=== PATIENT | male | born 1955 | race Caucasian/White ===

== ENCOUNTER 2019-03-22 14:58 | Inpatient (IN) | payer MEDICARE, MEDICAID ==
--- NOTE | 2019-03-22 17:21 | ED Physician Chart ---
ED Chief Complaint/HPI - Patient Information Date Seen:: 03/22/19 Time Seen:: 17:21 Chief Complaint:: Weakness History of Present Illness:: 64 yo male with history of schizophrenia was brought from [facility] to ER for evaluation of increasing weakness and confusion. On arrival at ER, pt was awake, alert, and able to ambulate. Pt was oriented x1. Allergies:: Allergies Allergy/AdvReac Type Severity Reaction Status Date / Time No Known Allergies Allergy Verified 03/22/19 15:11 Vitals:: Vital Signs - 8 hr 03/22/19 15:05 Temp 98.3 F HR 107 RR 18 BP 153/99 O2 Sat % 98 ED Review of Systems - Review of Systems General/Constitutional: No fever Skin: No rash Head: No headache Eyes: No pain ENT: No nasal drainage Neck: No neck pain Cardio Vascular: No chest pain Pulmonary: No SOB GI: No nausea, No vomiting Musculoskeletal: No bone or joint pain Psychiatric: Prior psych history Neurological: No focal symptoms ED Past Medical History - Past Medical History Past Medical History: Other (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 ) Social History: Smoker, No Alcohol, No Drug Use Surgical History: Appendectomy Psychiatricy History: Schizophrenia Family Medical History - Family Member Mother History Unknown: Yes ED Physical Exam - Physical Examination General/Constitutional: Awake, Alert Head: Atraumatic Eyes: PERRL Skin: No skin lesions ENMT: Nasal exam nl Neck: No nuchal rigidity Respiratory: No Wheeze/Rhonchi/Rales Cardio Vascular: RRR, No murmur, gallop, rubs, NL S1 S2 GI: No tenderness/rebounding/guarding Extremities: No tenderness or effusion Other Neuro/Psych comments:: A & O x 1, followed commands ED Labs/Radiology/EKG Results - Lab Results Results: Laboratory Last Values WBC 7.2 Th/cmm (4.8-10.8) 03/22/19 17:45 RBC 4.30 Mil/cmm (4.30-5.70) 03/22/19 17:45 Hgb 12.3 gm/dL (12-16) 03/22/19 17:45 Hct 37.7 % (41.0-60) L 03/22/19 17:45 MCV 87.9 fl (80-99) 03/22/19 17:45 MCH 28.7 pg (26.0-30.0) 03/22/19 17:45 MCHC Differential 32.7 pg (28.0-36.0) 03/22/19 17:45 RDW 16.9 % (11.5-20.0) 03/22/19 17:45 Plt Count 285 Th/cmm (150-400) 03/22/19 17:45 MPV 6.9 fl 03/22/19 17:45 Neutrophils % 65.9 % (40.0-80.0) 03/22/19 17:45 Lymphocytes % 21.3 % (20.0-50.0) 03/22/19 17:45 Monocytes % 8.1 % (2.0-10.0) 03/22/19 17:45 Eosinophils % 3.9 % (0.0-5.0) 03/22/19 17:45 Basophils % 0.8 % (0.0-2.0) 03/22/19 17:45 Sodium 135 mEq/L (136-145) L 03/22/19 17:45 Potassium 3.9 mEq/L (3.5-5.1) 03/22/19 17:45 Chloride 101 mEq/L (98-107) 03/22/19 17:45 Carbon Dioxide 27.0 mEq/L (21.0-31.0) 03/22/19 17:45 Anion Gap 10.9 (7.0-16.0) 03/22/19 17:45 BUN 17 mg/dL (7-25) 03/22/19 17:45 Creatinine 0.7 mg/dL (0.7-1.3) 03/22/19 17:45 Est GFR ( Amer) > 60.0 ml/min (>90) 03/22/19 17:45 Est GFR (Non-Af Amer) > 60.0 ml/min 03/22/19 17:45 BUN/Creatinine Ratio 24.3 03/22/19 17:45 Glucose 96 mg/dL (70-105) 03/22/19 17:45 Calcium 9.5 mg/dL (8.6-10.3) 03/22/19 17:45 Total Bilirubin 0.2 mg/dL (0.3-1.0) L 03/22/19 17:45 AST 13 U/L (13-39) 03/22/19 17:45 ALT 10 U/L (7-52) 03/22/19 17:45 Alkaline Phosphatase 70 U/L (34-104) 03/22/19 17:45 Total Protein 6.9 gm/dL (6.0-8.3) 03/22/19 17:45 Albumin 4.0 gm/dL (4.2-5.5) L 03/22/19 17:45 Globulin 2.9 gm/dL 03/22/19 17:45 Albumin/Globulin Ratio 1.4 (1.0-1.8) 03/22/19 17:45 Laboratory Last Values WBC 7.2 Th/cmm (4.8-10.8) 03/22/19 17:45 RBC 4.30 Mil/cmm (4.30-5.70) 03/22/19 17:45 Hgb 12.3 gm/dL (12-16) 03/22/19 17:45 Hct 37.7 % (41.0-60) L 03/22/19 17:45 MCV 87.9 fl (80-99) 03/22/19 17:45 MCH 28.7 pg (26.0-30.0) 03/22/19 17:45 MCHC Differential 32.7 pg (28.0-36.0) 03/22/19 17:45 RDW 16.9 % (11.5-20.0) 03/22/19 17:45 Plt Count 285 Th/cmm (150-400) 03/22/19 17:45 MPV 6.9 fl 03/22/19 17:45 Neutrophils % 65.9 % (40.0-80.0) 03/22/19 17:45 Lymphocytes % 21.3 % (20.0-50.0) 03/22/19 17:45 Monocytes % 8.1 % (2.0-10.0) 03/22/19 17:45 Eosinophils % 3.9 % (0.0-5.0) 03/22/19 17:45 Basophils % 0.8 % (0.0-2.0) 03/22/19 17:45 Sodium 135 mEq/L (136-145) L 03/22/19 17:45 Potassium 3.9 mEq/L (3.5-5.1) 03/22/19 17:45 Chloride 101 mEq/L (98-107) 03/22/19 17:45 Carbon Dioxide 27.0 mEq/L (21.0-31.0) 03/22/19 17:45 Anion Gap 10.9 (7.0-16.0) 03/22/19 17:45 BUN 17 mg/dL (7-25) 03/22/19 17:45 Creatinine 0.7 mg/dL (0.7-1.3) 03/22/19 17:45 Est GFR ( Amer) > 60.0 ml/min (>90) 03/22/19 17:45 Est GFR (Non-Af Amer) > 60.0 ml/min 03/22/19 17:45 BUN/Creatinine Ratio 24.3 03/22/19 17:45 Glucose 96 mg/dL (70-105) 03/22/19 17:45 Calcium 9.5 mg/dL (8.6-10.3) 03/22/19 17:45 Total Bilirubin 0.2 mg/dL (0.3-1.0) L 03/22/19 17:45 AST 13 U/L (13-39) 03/22/19 17:45 ALT 10 U/L (7-52) 03/22/19 17:45 Alkaline Phosphatase 70 U/L (34-104) 03/22/19 17:45 Troponin I < 0.01 ng/mL (0.01-0.05) L 03/22/19 17:45 B-Natriuretic Peptide 7.0 pg/mL (5.0-100.0) 03/22/19 17:45 Total Protein 6.9 gm/dL (6.0-8.3) 03/22/19 17:45 Albumin 4.0 gm/dL (4.2-5.5) L 03/22/19 17:45 Globulin 2.9 gm/dL 03/22/19 17:45 Albumin/Globulin Ratio 1.4 (1.0-1.8) 03/22/19 17:45 TSH 0.68 uIU/ml (0.34-5.60) 03/22/19 17:45 Urine Source MIDSTREAM 03/22/19 18:50 Urine Color YELLOW 03/22/19 18:50 Urine Clarity CLEAR (CLEAR) 03/22/19 18:50 Urine pH 6.0 (4.6 - 8.0) 03/22/19 18:50 Ur Specific [place] 1.010 (1.005-1.030) 03/22/19 18:50 Urine Protein NEGATIVE mg/dL (NEGATIVE) 03/22/19 18:50 Urine Glucose (UA) NEGATIVE mg/dL (NEGATIVE) 03/22/19 18:50 Urine Ketones NEGATIVE mg/dL (NEGATIVE) 03/22/19 18:50 Urine Blood NEGATIVE (NEGATIVE) 03/22/19 18:50 Urine Nitrate NEGATIVE (NEGATIVE) 03/22/19 18:50 Urine Bilirubin NEGATIVE (NEGATIVE) 03/22/19 18:50 Urine Urobilinogen 0.2 E.U./dL (0.2 - 1.0) 03/22/19 18:50 Ur Leukocyte Esterase NEGATIVE (NEGATIVE) 03/22/19 18:50 Urine RBC 0-2 /hpf (0-5) H 03/22/19 18:50 Urine WBC 2-5 /hpf (0-5) 03/22/19 18:50 Ur Epithelial Cells FEW /lpf (FEW) 03/22/19 18:50 Urine Bacteria FEW /hpf (NONE SEEN) 03/22/19 18:50 Urine Mucus FEW /lpf (FEW) 03/22/19 18:50 - Radiology Results Results: CXR: no focal consolidation - EKG Interpretations EKG Time:: 17:35 Rate & Rhythm: 60 bpm, sinus rhythm [place]: Normal axis ED Assessment - Assessment General Assessment: General weakness Encephalopathy Assessment/Comments:: CBC, CMP, Trop, BNP, CPK, UA CXR, EKG Discussed with Dr. Perez for possible further evaluation and management of the encephalopathy. ED Septic Shock - . Is Septic Shock (SBP<90, OR Lactate>4 mmol\L) present?: No - <6hrs of presentation: Vital Signs: Vital Signs - 8 hr 03/22/19 15:05 Temp 98.3 F HR 107 RR 18 BP 153/99 O2 Sat % 98 ED Reassessment (Disposition) - Reassessment Reassessment Condition:: Unchanged - Patient Disposition Discharge/Transfer:: Acute Care w/in this hosp Admitting Medical Physician:: Letty Perez
[2019-03-22 18:04] LABS: % BASOPHILS 0.8 % (0.0-2.0); % EOSINOPHILS 3.9 % (0.0-5.0); % LYMPHOCYTES 21.3 % (20.0-50.0); % MONOCYTES 8.1 % (2.0-10.0); % NEUTROPHILS 65.9 % (40.0-80.0); BASOPHILE ABSOLUTE 0.1 Th/cumm (0-0.2); EOSINOPHILE ABSOLUTE 0.3 Th/cmm (0.1-0.4); HEMATOCRIT 37.7 % (41.0-60); HEMOGLOBIN 12.3 gm/dL (12-16); LYMPHOCYTE ABSOLUTE 1.5 Th/cmm (1.5-3.0); MEAN CELL VOLUME 87.9 fl (80-99); MEAN CORPUSCULAR HEMOGLOBIN 28.7 pg (26.0-30.0); MEAN CORPUSCULAR HGB CONC 32.7 pg (28.0-36.0); MEAN PLATELET VOLUME 6.9 fl; MONOCYTE ABSOLUTE 0.6 Th/cmm (0.3-1.0); NEUTROPHILE ABSOLUTE 4.7 Th/cmm (1.8-8.0); PLATELET COUNT 285 Th/cmm (150-400); RED CELL DISTRIBUTION WIDTH 16.9 % (11.5-20.0); WHITE BLOOD COUNT 7.2 Th/cmm (4.8-10.8)
[2019-03-22 18:20] LABS: ALB/GLOB RATIO 1.4 (1.0-1.8); ALKALINE PHOSPHATASE 70 U/L (34-104); ANION GAP 10.9 (7.0-16.0); BILIRUBIN,TOTAL 0.2 mg/dL (0.3-1.0); BUN - UREA NITROGEN 17 mg/dL (7-25); CALCIUM SERUM 9.5 mg/dL (8.6-10.3); CHLORIDE 101 mEq/L (98-107); CREATININE - SERUM 0.7 mg/dL (0.7-1.3); GFR AFRICAN-AMERICAN > 60.0 ml/min (>90); GFR NON AFRICAN-AMERICAN > 60.0 ml/min; GLUCOSE 96 mg/dL (70-105); POTASSIUM SERUM 3.9 mEq/L (3.5-5.1); SGOT 13 U/L (13-39); SGPT/ALT 10 U/L (7-52); SODIUM SERUM 135 mEq/L (136-145); TOTAL PROTEIN,SERUM 6.9 gm/dL (6.0-8.3)
[2019-03-22 19:48] LABS: URINE SOURCE MIDSTREAM
[2019-03-22 20:08] LABS: URINE BILIRUBIN NEGATIVE (NEGATIVE); URINE BLOOD NEGATIVE (NEGATIVE); URINE CLARITY CLEAR (CLEAR); URINE COLOR YELLOW; URINE GLUCOSE (UA) NEGATIVE (NEGATIVE); URINE KETONE NEGATIVE (NEGATIVE); URINE LEUKOCYTE ESTERASE NEGATIVE (NEGATIVE); URINE MICROSCOPIC INDICATED? YES; URINE NITRATE NEGATIVE (NEGATIVE); URINE PROTEIN NEGATIVE (NEGATIVE); URINE UROBILINOGEN 0.2 E.U./dL (0.2 - 1.0)
[2019-03-22 20:49] LABS: URINE BACTERIA FEW /hpf (NONE SEEN); URINE EPITHELIAL CELLS FEW /lpf (FEW); URINE RBC 0-2 /hpf (0-5)
[2019-03-22 23:22] VITALS: BP 115/67
[2019-03-22] MEDS: D5-0.45NS 1,000 ML IV SCH (23:42)
[2019-03-23] MEDS ORDERED: Pneumococcal Vaccine 0.5 mL Vial IM ONE (00:38)
[2019-03-23 06:39] LABS: % BASOPHILS 0.6 % (0.0-2.0); % MONOCYTES 9.2 % (2.0-10.0); % NEUTROPHILS 61.2 % (40.0-80.0); EOSINOPHILE ABSOLUTE 0.4 Th/cmm (0.1-0.4); HEMATOCRIT 36.8 % (41.0-60); HEMOGLOBIN 12.2 gm/dL (12-16); LYMPHOCYTE ABSOLUTE 1.4 Th/cmm (1.5-3.0); MEAN CELL VOLUME 87.2 fl (80-99); MEAN CORPUSCULAR HEMOGLOBIN 28.9 pg (26.0-30.0); MEAN CORPUSCULAR HGB CONC 33.1 pg (28.0-36.0); MEAN PLATELET VOLUME 7.2 fl; MONOCYTE ABSOLUTE 0.6 Th/cmm (0.3-1.0); NEUTROPHILE ABSOLUTE 3.6 Th/cmm (1.8-8.0); PLATELET COUNT 267 Th/cmm (150-400); RED BLOOD COUNT 4.22 Mil/cmm (4.30-5.70); RED CELL DISTRIBUTION WIDTH 17.1 % (11.5-20.0)
[2019-03-23 06:47] LABS: INR 0.94 (0.5-1.4); PROTHROMBIN TIME (TEST) 9.8 SECONDS (9.5-11.5)
[2019-03-23 06:54] LABS: ALB/GLOB RATIO 1.4 (1.0-1.8); ALBUMIN 3.8 gm/dL (4.2-5.5); ALKALINE PHOSPHATASE 67 U/L (34-104); ANION GAP 10.8 (7.0-16.0); BILIRUBIN,TOTAL 0.3 mg/dL (0.3-1.0); BUN - UREA NITROGEN 15 mg/dL (7-25); CALCIUM SERUM 9.4 mg/dL (8.6-10.3); CHLORIDE 101 mEq/L (98-107); CHOLESTEROL 165 mg/dL (<200); CREATININE - SERUM 0.7 mg/dL (0.7-1.3); GFR AFRICAN-AMERICAN > 60.0 ml/min (>90); GFR NON AFRICAN-AMERICAN > 60.0 ml/min; GLUCOSE 109 mg/dL (70-105); HDL -HIGH DENSITY LIPOPROTEIN 37 mg/dL (23-92); MAGNESIUM 2.3 mg/dL (1.9-2.7); POTASSIUM SERUM 3.8 mEq/L (3.5-5.1); SGOT 14 U/L (13-39); SGPT/ALT 11 U/L (7-52); SODIUM SERUM 136 mEq/L (136-145); TOTAL PROTEIN,SERUM 6.6 gm/dL (6.0-8.3); TRIGLYCERIDES 82 mg/dL (<150)
--- NOTE | 2019-03-23 10:41 | Diagnostic Imaging Report ---
Head CT without intravenous contrast Indication: Weakness Comparison: None Technique: Axial images were obtained from the vertex to the skull base without IV contrast. Coronal reconstructions were made. Total DLP: 640, CTDI35 FINDINGS: Images of the brain obtained without contrast demonstrate no evidence of an acute hemorrhage. Atrophy is noted. The ventricles and basal cisterns are patent. No mass effect or midline shift. No evidence of a skull fracture or focal soft tissue swelling. There is age indeterminate nasal fractures. There is mild mucosal thickening of the paranasal sinuses. IMPRESSION: No evidence of an acute intracranial hemorrhage. Atrophy. Age indeterminate nasal bone fractures possibly chronic. Please correlate with clinical findings.
--- NOTE | 2019-03-23 11:20 | Diagnostic Imaging Report ---
Portable chest x-ray Time: 1732 History: SOB Allowing for portable technique the heart size is normal. No focal pulmonary parenchymal processes. No hilar or mediastinal abnormalities. There is evidence of COPD changes. Impression: No acute abnormalities. COPD changes.
--- NOTE | 2019-03-23 12:41 | History & Physical ---
ADMIT DATE: 03/23/2019 DICTATED FOR: Dr. Perez. CHIEF COMPLAINT: Increase in weakness. HISTORY OF PRESENT ILLNESS: A 64-year-old male, who is a skilled nursing resident, admitted to the telemetry unit due to a 1-day history of increase of generalized weakness associated with confusion. PAST MEDICAL HISTORY: Right second distal phalanx osteomyelitis, schizophrenia. SOCIAL HISTORY: The patient is a skilled nursing resident. The patient is a current smoker. SURGICAL HISTORY: Appendectomy. FAMILY HISTORY: Noncontributory. MEDICATIONS: See medication list. REVIEW OF SYSTEMS: GENERAL: Denies any fever or chills. CARDIOVASCULAR: Denies chest pain. RESPIRATORY: Shortness of breath. GASTROINTESTINAL: Denies nausea, vomiting, abdominal pain. NEUROLOGIC: The patient complains of weakness. All other systems are reviewed and negative. PHYSICAL EXAMINATION: GENERAL: The patient is well developed, well nourished, in no apparent distress. VITAL SIGNS: Temperature 97.3, heart rate 63, blood pressure 132/85, respirations 19, O2 99%. HEENT: Head is normocephalic, atraumatic. NECK: Supple. No mass. LUNGS: Clear bilaterally. HEART: ____. ABDOMEN: Soft, nontender. LABORATORY DATA: WBC 6.0, H and H 12.2 and 36.8, platelet of 267. Sodium 136, potassium 3.8, chloride 101, BUN 15, creatinine 0.7. ASSESSMENT: Weakness, encephalopathy, schizophrenia. PLAN: The patient to be admitted to the telemetry unit. We will give IV fluids for hydration. We will get GI consultation as well. We will continue to monitor the patient. JOB# [id number]
--- NOTE | 2019-03-23 14:55 | Consultation ---
DATE OF CONSULTATION: 03/23/2019 IDENTIFYING INFORMATION: The patient is a 64-year-old male. REASON FOR CONSULTATION: The patient with a history of schizophrenia, came from [facility] to the Emergency Room for evaluation, increasing weakness, confusion. HISTORY OF PRESENT ILLNESS: The patient was awake, alert, unable to ambulate, oriented to person only. When I talked to him, he was a very poor historian. He believes he was 67. He reports that he has a girlfriend that is age 18. He did not know he came from [facility] facility. He believes he lives in an apartment with his girlfriend that is 18 years of age and they have been together for 1 year. He reports sleeps well, eats well. Denies any current intent to harm himself or anybody. Denies any current audible or visual hallucination; however, he said he may had in the past. PAST PSYCHIATRIC HISTORY: The patient is unable to give me if he has any prior psychiatric treatment, but he said he may have seen a psychiatrist before. He denies any prior suicide attempt. MEDICAL HISTORY: Weakness. The patient also with a history of high blood pressure. He was started on antibiotic. ALLERGIES: He has no known drug allergy. MEDICATIONS: He is not on any psychotropic medication. FAMILY AND SOCIAL HISTORY: The patient reports he is single, never , but he has a boy. Unable to tell me his age. The patient reports no family psychotic disorder. He reports history of using THC and alcohol, but not recently. He was a poor historian, unreliable. The patient denies legal problem. He believes he lives in an apartment with his girlfriend that is 18 years of age. MENTAL STATUS EXAMINATION: The patient was appropriately dressed, not well groomed. He was alert. He believes he was 67, on reality 64. He is unable to tell me his age, where he is. He believes he is here because he has pain in his hands. He denies any adventism or paranoia. Denies any intent to harm self or anybody. He denies any paranoia. He seems to have poor insight, unable to realize what his problems are, his cannot remember his age and recent memories we does not know the exact details at his admission. His insight about his illness is poor, does not know what his problem is. His judgment is poor because of his poor memory and unable to make safe plan for self-care. He denies any suicidal ideation. IMPRESSION: History of schizophrenia. MEDICAL DIAGNOSES: As per medical. I recommend at this point, the patient is not having any psychotic symptoms; however does not have any psychotic symptoms, he may need to be back on his medication. He is more confused, may be demented recommend to follow up with the psychiatrist upon discharge. Thank you very much for allowing me to participate in the care of this most interesting gentleman. JOB# [id number] MTDD
[2019-03-23] MEDS ORDERED: Non-Formulary Item 1 EA (Amino Acids/Protein Hydrolys [Pro-Stat Awc Liquid Packet] 30 ML) PO SCH (17:00)
[2019-03-23] MEDS: Ferrous Sulfate 325 MG TAB PO SCH (18:09)
[2019-03-24] MEDS: D5-0.45NS 1,000 ML IV SCH (02:39)
[2019-03-24 06:14] LABS: % BASOPHILS 0.5 % (0.0-2.0); % EOSINOPHILS 4.6 % (0.0-5.0); % LYMPHOCYTES 23.9 % (20.0-50.0); % MONOCYTES 7.9 % (2.0-10.0); % NEUTROPHILS 63.1 % (40.0-80.0); EOSINOPHILE ABSOLUTE 0.3 Th/cmm (0.1-0.4); HEMATOCRIT 40.1 % (41.0-60); HEMOGLOBIN 13.1 gm/dL (12-16); LYMPHOCYTE ABSOLUTE 1.6 Th/cmm (1.5-3.0); MEAN CORPUSCULAR HEMOGLOBIN 28.8 pg (26.0-30.0); MEAN CORPUSCULAR HGB CONC 32.7 pg (28.0-36.0); MEAN PLATELET VOLUME 6.9 fl; MONOCYTE ABSOLUTE 0.5 Th/cmm (0.3-1.0); NEUTROPHILE ABSOLUTE 4.5 Th/cmm (1.8-8.0); PLATELET COUNT 288 Th/cmm (150-400); RED BLOOD COUNT 4.56 Mil/cmm (4.30-5.70); RED CELL DISTRIBUTION WIDTH 16.8 % (11.5-20.0); WHITE BLOOD COUNT 6.9 Th/cmm (4.8-10.8)
[2019-03-24 06:38] LABS: ANION GAP 10.3 (7.0-16.0); BUN - UREA NITROGEN 15 mg/dL (7-25); CALCIUM SERUM 9.6 mg/dL (8.6-10.3); CARBON DIOXIDE 28.8 mEq/L (21.0-31.0); CHLORIDE 101 mEq/L (98-107); CREATININE - SERUM 0.7 mg/dL (0.7-1.3); GFR AFRICAN-AMERICAN > 60.0 ml/min (>90); GFR NON AFRICAN-AMERICAN > 60.0 ml/min; GLUCOSE 99 mg/dL (70-105); POTASSIUM SERUM 4.1 mEq/L (3.5-5.1); SODIUM SERUM 136 mEq/L (136-145)
[2019-03-24] MEDS: Ferrous Sulfate 325 MG TAB PO SCH ×2 (08:25→17:25)
--- NOTE | 2019-03-24 12:52 | Internal Medicine Prog Note ---
Internal Medicine Subjective - Subjective Patient seen and examined:: chart reviewed (pt. with generalized weakness ) Patient is:: awake, confused Per staff patient has:: tolerating meds Internal Medicine Objective - Results Result Diagrams: 03/24/19 06:00 03/24/19 06:00 Recent Labs: Laboratory Last Values WBC 6.9 Th/cmm (4.8-10.8) 03/24/19 06:00 RBC 4.56 Mil/cmm (4.30-5.70) 03/24/19 06:00 Hgb 13.1 gm/dL (12-16) 03/24/19 06:00 Hct 40.1 % (41.0-60) L 03/24/19 06:00 MCV 88.0 fl (80-99) 03/24/19 06:00 MCH 28.8 pg (26.0-30.0) 03/24/19 06:00 MCHC Differential 32.7 pg (28.0-36.0) 03/24/19 06:00 RDW 16.8 % (11.5-20.0) 03/24/19 06:00 Plt Count 288 Th/cmm (150-400) 03/24/19 06:00 MPV 6.9 fl 03/24/19 06:00 Neutrophils % 63.1 % (40.0-80.0) 03/24/19 06:00 Lymphocytes % 23.9 % (20.0-50.0) 03/24/19 06:00 Monocytes % 7.9 % (2.0-10.0) 03/24/19 06:00 Eosinophils % 4.6 % (0.0-5.0) 03/24/19 06:00 Basophils % 0.5 % (0.0-2.0) 03/24/19 06:00 PT 9.8 SECONDS (9.5-11.5) 03/23/19 05:55 INR 0.94 (0.5-1.4) 03/23/19 05:55 PTT (Actin FS) 23.6 SECONDS (26.0-38.0) L 03/23/19 05:55 Sodium 136 mEq/L (136-145) 03/24/19 06:00 Potassium 4.1 mEq/L (3.5-5.1) 03/24/19 06:00 Chloride 101 mEq/L (98-107) 03/24/19 06:00 Carbon Dioxide 28.8 mEq/L (21.0-31.0) 03/24/19 06:00 Anion Gap 10.3 (7.0-16.0) 03/24/19 06:00 BUN 15 mg/dL (7-25) 03/24/19 06:00 Creatinine 0.7 mg/dL (0.7-1.3) 03/24/19 06:00 Est GFR ( Amer) > 60.0 ml/min (>90) 03/24/19 06:00 Est GFR (Non-Af Amer) > 60.0 ml/min 03/24/19 06:00 BUN/Creatinine Ratio 21.4 03/24/19 06:00 Glucose 99 mg/dL (70-105) 03/24/19 06:00 Calcium 9.6 mg/dL (8.6-10.3) 03/24/19 06:00 Magnesium 2.3 mg/dL (1.9-2.7) 03/23/19 05:55 Total Bilirubin 0.3 mg/dL (0.3-1.0) 03/23/19 05:55 AST 14 U/L (13-39) 03/23/19 05:55 ALT 11 U/L (7-52) 03/23/19 05:55 Alkaline Phosphatase 67 U/L (34-104) 03/23/19 05:55 Ammonia 38 umol/L (16-53) 03/23/19 05:55 Troponin I < 0.01 ng/mL (0.01-0.05) L 03/22/19 17:45 B-Natriuretic Peptide 7.0 pg/mL (5.0-100.0) 03/22/19 17:45 Total Protein 6.6 gm/dL (6.0-8.3) 03/23/19 05:55 Albumin 3.8 gm/dL (4.2-5.5) L 03/23/19 05:55 Globulin 2.8 gm/dL 03/23/19 05:55 Albumin/Globulin Ratio 1.4 (1.0-1.8) 03/23/19 05:55 Triglycerides 82 mg/dL (<150) 03/23/19 05:55 Cholesterol 165 mg/dL (<200) 03/23/19 05:55 LDL Cholesterol Direct 119 mg/dL (75-193) 03/23/19 05:55 HDL Cholesterol 37 mg/dL (23-92) 03/23/19 05:55 TSH 0.82 uIU/ml (0.34-5.60) 03/23/19 05:55 Urine Source MIDSTREAM 03/22/19 18:50 Urine Color YELLOW 03/22/19 18:50 Urine Clarity CLEAR (CLEAR) 03/22/19 18:50 Urine pH 6.0 (4.6 - 8.0) 03/22/19 18:50 Ur Specific [place] 1.010 (1.005-1.030) 03/22/19 18:50 Urine Protein NEGATIVE mg/dL (NEGATIVE) 03/22/19 18:50 Urine Glucose (UA) NEGATIVE mg/dL (NEGATIVE) 03/22/19 18:50 Urine Ketones NEGATIVE mg/dL (NEGATIVE) 03/22/19 18:50 Urine Blood NEGATIVE (NEGATIVE) 03/22/19 18:50 Urine Nitrate NEGATIVE (NEGATIVE) 03/22/19 18:50 Urine Bilirubin NEGATIVE (NEGATIVE) 03/22/19 18:50 Urine Urobilinogen 0.2 E.U./dL (0.2 - 1.0) 03/22/19 18:50 Ur Leukocyte Esterase NEGATIVE (NEGATIVE) 03/22/19 18:50 Urine RBC 0-2 /hpf (0-5) H 03/22/19 18:50 Urine WBC 2-5 /hpf (0-5) 03/22/19 18:50 Ur Epithelial Cells FEW /lpf (FEW) 03/22/19 18:50 Urine Bacteria FEW /hpf (NONE SEEN) 03/22/19 18:50 Urine Mucus FEW /lpf (FEW) 03/22/19 18:50 - Physical Exam Vitals and I&O: Vital Signs Temp 97.5 F 03/24/19 08:00 Pulse 57 03/24/19 08:00 Resp 19 03/24/19 08:00 BP 122/60 03/24/19 08:00 Pulse Ox 98 03/24/19 08:00 Intake & Output 03/23/19 03/24/19 03/24/19 18:59 06:59 18:59 Intake Total 1000 1480 Output Total 1200 Balance 1000 280 Weight (lbs) 65.771 kg 63.049 kg Intake: Intake, IV Amount 1000 D5-0.45NS 1,000 ml @ 50 1000 mls/hr IV .Q20H [facility] Rx#: [id number] Oral 1000 480 Output: Urine 1200 Stool 0 Other: # Voids 4 # Bowel Movements 0 0 Weight Source Bedscale Bedscale Active Medications: Current Medications Acetaminophen (Tylenol) 650 mg PO Q4HR [facility] Stop: 05/22/19 15:59 Last Admin: 03/24/19 12:01 Dose: Not Given Docusate Sodium (Colace) 100 mg PO BID [facility] Stop: 05/22/19 16:59 Last Admin: 03/24/19 08:26 Dose: 100 mg Ferrous Sulfate (Iron) 325 mg PO BID [facility] Stop: 05/22/19 16:59 Last Admin: 03/24/19 08:25 Dose: 325 mg Hydralazine HCl (Apresoline) 25 mg PO Q6HR PRN PRN Reason: BP MAINTENANCE (PER PROTOCOL) Stop: 05/22/19 12:16 Dextrose/Sodium Chloride (D5-0.45ns) 1,000 mls @ 50 mls/hr IV .Q20H [facility] Stop: 05/21/19 19:29 Last Admin: 03/24/19 02:39 Dose: 50 mls/hr General: weak HEENT: PERRLA, EOMI Neck: Supple Lungs: CTAB Cardiovascular: RRR, Normal S1, Normal S2 Abdomen: soft, non-tender, non-distended, positive bowel sound Neurological: muscle weakness Internal Medicine Assmt/Plan - Assessment Assessment: weakness encephalopathy schizophrenia - Plan Plan: iv fluids gi eval. will monitor pt. cpm
[2019-03-25] MEDS: D5-0.45NS 1,000 ML IV SCH ×2 (01:40→08:58)
--- NOTE | 2019-03-25 02:38 | Progress Notes ---
DATE: 03/24/2019 Case was discussed with staff of the patient, reviewed records. The patient continues to be confused, unable to give me his age. He has no clue why he is here. Continues to be unpredictable, impulsive; however, he is not acting out. According to the staff, he is sleeping better, eating better. He is currently not on any psychotropic medication; however, I will follow up with the patient and see if he is needing it because of history of schizophrenia. Also, he may be demented and the patient needs follow up with the psychiatrist upon discharge to continue to follow him. Thank you very much for allowing me to participate in the care of this most interesting gentleman. JOB# [id number]
[2019-03-25] MEDS: Ferrous Sulfate 325 MG TAB PO SCH ×2 (08:57→17:20)
[2019-03-26] MEDS: Ferrous Sulfate 325 MG TAB PO SCH ×2 (08:38→16:16)
--- NOTE | 2019-03-26 10:38 | Internal Medicine Prog Note ---
Internal Medicine Subjective - Subjective Patient seen and examined:: chart reviewed (pt awake alert in no acute distress) Patient is:: awake, confused Per staff patient has:: tolerating meds Internal Medicine Objective - Results Result Diagrams: 03/24/19 06:00 03/24/19 06:00 Recent Labs: Laboratory Last Values WBC 6.9 Th/cmm (4.8-10.8) 03/24/19 06:00 RBC 4.56 Mil/cmm (4.30-5.70) 03/24/19 06:00 Hgb 13.1 gm/dL (12-16) 03/24/19 06:00 Hct 40.1 % (41.0-60) L 03/24/19 06:00 MCV 88.0 fl (80-99) 03/24/19 06:00 MCH 28.8 pg (26.0-30.0) 03/24/19 06:00 MCHC Differential 32.7 pg (28.0-36.0) 03/24/19 06:00 RDW 16.8 % (11.5-20.0) 03/24/19 06:00 Plt Count 288 Th/cmm (150-400) 03/24/19 06:00 MPV 6.9 fl 03/24/19 06:00 Neutrophils % 63.1 % (40.0-80.0) 03/24/19 06:00 Lymphocytes % 23.9 % (20.0-50.0) 03/24/19 06:00 Monocytes % 7.9 % (2.0-10.0) 03/24/19 06:00 Eosinophils % 4.6 % (0.0-5.0) 03/24/19 06:00 Basophils % 0.5 % (0.0-2.0) 03/24/19 06:00 PT 9.8 SECONDS (9.5-11.5) 03/23/19 05:55 INR 0.94 (0.5-1.4) 03/23/19 05:55 PTT (Actin FS) 23.6 SECONDS (26.0-38.0) L 03/23/19 05:55 Sodium 136 mEq/L (136-145) 03/24/19 06:00 Potassium 4.1 mEq/L (3.5-5.1) 03/24/19 06:00 Chloride 101 mEq/L (98-107) 03/24/19 06:00 Carbon Dioxide 28.8 mEq/L (21.0-31.0) 03/24/19 06:00 Anion Gap 10.3 (7.0-16.0) 03/24/19 06:00 BUN 15 mg/dL (7-25) 03/24/19 06:00 Creatinine 0.7 mg/dL (0.7-1.3) 03/24/19 06:00 Est GFR ( Amer) > 60.0 ml/min (>90) 03/24/19 06:00 Est GFR (Non-Af Amer) > 60.0 ml/min 03/24/19 06:00 BUN/Creatinine Ratio 21.4 03/24/19 06:00 Glucose 99 mg/dL (70-105) 03/24/19 06:00 Calcium 9.6 mg/dL (8.6-10.3) 03/24/19 06:00 Magnesium 2.3 mg/dL (1.9-2.7) 03/23/19 05:55 Total Bilirubin 0.3 mg/dL (0.3-1.0) 03/23/19 05:55 AST 14 U/L (13-39) 03/23/19 05:55 ALT 11 U/L (7-52) 03/23/19 05:55 Alkaline Phosphatase 67 U/L (34-104) 03/23/19 05:55 Ammonia 38 umol/L (16-53) 03/23/19 05:55 Troponin I < 0.01 ng/mL (0.01-0.05) L 03/22/19 17:45 B-Natriuretic Peptide 7.0 pg/mL (5.0-100.0) 03/22/19 17:45 Total Protein 6.6 gm/dL (6.0-8.3) 03/23/19 05:55 Albumin 3.8 gm/dL (4.2-5.5) L 03/23/19 05:55 Globulin 2.8 gm/dL 03/23/19 05:55 Albumin/Globulin Ratio 1.4 (1.0-1.8) 03/23/19 05:55 Triglycerides 82 mg/dL (<150) 03/23/19 05:55 Cholesterol 165 mg/dL (<200) 03/23/19 05:55 LDL Cholesterol Direct 119 mg/dL (75-193) 03/23/19 05:55 HDL Cholesterol 37 mg/dL (23-92) 03/23/19 05:55 TSH 0.82 uIU/ml (0.34-5.60) 03/23/19 05:55 Urine Source MIDSTREAM 03/22/19 18:50 Urine Color YELLOW 03/22/19 18:50 Urine Clarity CLEAR (CLEAR) 03/22/19 18:50 Urine pH 6.0 (4.6 - 8.0) 03/22/19 18:50 Ur Specific [place] 1.010 (1.005-1.030) 03/22/19 18:50 Urine Protein NEGATIVE mg/dL (NEGATIVE) 03/22/19 18:50 Urine Glucose (UA) NEGATIVE mg/dL (NEGATIVE) 03/22/19 18:50 Urine Ketones NEGATIVE mg/dL (NEGATIVE) 03/22/19 18:50 Urine Blood NEGATIVE (NEGATIVE) 03/22/19 18:50 Urine Nitrate NEGATIVE (NEGATIVE) 03/22/19 18:50 Urine Bilirubin NEGATIVE (NEGATIVE) 03/22/19 18:50 Urine Urobilinogen 0.2 E.U./dL (0.2 - 1.0) 03/22/19 18:50 Ur Leukocyte Esterase NEGATIVE (NEGATIVE) 03/22/19 18:50 Urine RBC 0-2 /hpf (0-5) H 03/22/19 18:50 Urine WBC 2-5 /hpf (0-5) 03/22/19 18:50 Ur Epithelial Cells FEW /lpf (FEW) 03/22/19 18:50 Urine Bacteria FEW /hpf (NONE SEEN) 03/22/19 18:50 Urine Mucus FEW /lpf (FEW) 03/22/19 18:50 - Physical Exam Vitals and I&O: Vital Signs Temp 98.2 F 03/26/19 08:00 Pulse 70 03/26/19 08:00 Resp 18 03/26/19 08:00 BP 131/96 03/26/19 08:00 Pulse Ox 99 03/26/19 08:00 Intake & Output 03/25/19 03/26/19 03/26/19 18:59 06:59 18:59 Intake Total 445 500 Output Total 800 Balance -355 500 Weight (lbs) 64.864 kg 64.864 kg Intake: Intake, IV Amount 365 D5-0.45NS 1,000 ml @ 50 365 mls/hr IV .Q20H [facility] Rx#: [id number] Oral 80 500 Output: Urine 800 Other: # Voids 3 3 # Bowel Movements 1 Weight Source Bedscale Bedscale Active Medications: Current Medications Acetaminophen (Tylenol) 650 mg PO Q4HR PRN PRN Reason: Pain (Mild) Stop: 05/22/19 15:59 Docusate Sodium (Colace) 100 mg PO BID [facility] Stop: 05/22/19 16:59 Last Admin: 03/26/19 08:38 Dose: 100 mg Ferrous Sulfate (Iron) 325 mg PO BID [facility] Stop: 05/22/19 16:59 Last Admin: 03/26/19 08:38 Dose: 325 mg Hydralazine HCl (Apresoline) 25 mg PO Q6HR PRN PRN Reason: BP MAINTENANCE (PER PROTOCOL) Stop: 05/22/19 12:16 Dextrose/Sodium Chloride (D5-0.45ns) 1,000 mls @ 50 mls/hr IV .Q20H [facility] Stop: 05/21/19 19:29 Last Admin: 03/25/19 08:58 Dose: 50 mls/hr General: weak, other (confused) HEENT: PERRLA, EOMI Neck: Supple Lungs: CTAB Cardiovascular: RRR, Normal S1, Normal S2 Abdomen: soft, non-tender, non-distended, positive bowel sound Neurological: muscle weakness Internal Medicine Assmt/Plan - Assessment Assessment: weakness encephalopathy schizophrenia - Plan Plan: cpm
== END 2019-03-26 18:19 | DRG 72 ==
LOC: ER 14:58 → TELE 20:07
PROVIDERS: ADMIT Internal Medicine; ATTEND Internal Medicine
DX: G93.40 Encephalopathy, unspecified (principal); F20.9 Schizophrenia, unspecified; Z90.49 Acquired absence of other specified parts of digestive tract; Z23 Encounter for immunization
CPT/HCPCS: 36415-UA; 70450-TC; 71045-TC; 80048-TC; 80053-TC; 80061-TC; 81001-TC; 82140-TC; 83735-TC; 83880-TC; 84443-TC; 84484-TC; 85025-TC; 85610-TC; 93005; Z7610

== ENCOUNTER 2019-05-08 07:50 | Inpatient (IN) | payer MEDICAID, MEDICARE ==
--- NOTE | 2019-05-08 08:14 | ED Physician Chart ---
ED Chief Complaint/HPI - Patient Information Date Seen:: 05/08/19 Time Seen:: 07:50 Chief Complaint:: AMS History of Present Illness:: onset x one day of AMS, ALOC, cough, congestion, and weakness; no report of trauma, H/As, S/T, neck pain, C/P, SOB, Abd. Pain, A/N/V/D/C, fever, chills, or urinary s/s Allergies:: Allergies Allergy/AdvReac Type Severity Reaction Status Date / Time No Known Allergies Allergy Verified 03/22/19 15:11 Historian:: Patient, EMS Review:: Nurse's Note Reviewed, Old Chart Reviewed, EMS run form Reviewed ED Review of Systems - Review of Systems General/Constitutional: No fever, No chills, No weight loss, Weakness, No diaphoresis, No edema, No loss of appetite Skin: No skin lesions, No rash, No bruising Head: No headache, No light-headedness Eyes: No loss of vision, No pain, No diplopia ENT: No earache, No nasal drainage, No sore throat, No tinnitus Neck: No neck pain, No swelling, No thyromegaly, No stiffness, No mass noted Cardio Vascular: No chest pain, No palpitations, No PND, No orthopnea, No edema Pulmonary: No SOB, No cough, No sputum, No wheezing GI: No nausea, No vomiting, No diarrhea, No pain, No melena, No hematochezia, No constipation, No hematemesis G/U: No dysuria, No frequency, No hematuria, No nacturia Musculoskeletal: No bone or joint pain, No back pain, No muscle pain Endocrine: No polyuria, No polydipsia Psychiatric: No prior psych history, No depression, No anxiety, No suicidal ideation, No homicidal ideation, No auditory hallucination, No visual hallucination Hematopoietic: No bruising, No lymphadenopathy Allergic/Immuno: No urticaria, No angioedema Neurological: No syncope, No focal symptoms, Weakness, No paresthesia, No headache, No seizure, No dizziness, Confusion, No vertigo ED Past Medical History - Past Medical History Obtainable: Yes Past Medical History: HTN, DM Family History: HTN Social History: Non Smoker, No Alcohol, No Drug Use, , Care Facility Surgical History: None Psychiatricy History: None Medication: Reviewed Family Medical History - Family Member Mother History Unknown: Yes Ethnicity: Unknown Living Status: Unknown ED Physical Exam - Physical Examination General/Constitutional: Awake, Well-developed, well-nourished, Alert, No distress, GCS 15, Non-toxic appearing, Ambulatory Head: Atraumatic Eyes: Lids, conjuctiva normal, PERRL, EOMI Skin: Nl inspection, No rash, No skin lesions, No ecchymosis, Well hydrated, No lymphadenopathy ENMT: External ears, nose nl, TM canals nl, Nasal exam nl, Lips, teeth, gums nl , Oropharynx nl, Tonsils nl Neck: Nontender, Full ROM w/o pain, No JVD, No nuchal rigidity, No bruit, No mass, No stridor Respiratory: Nl effort/Exclusion Other Respiratory comments:: Lungs: + Rales and Rhonchi Cardio Vascular: RRR, No murmur, gallop, rubs, NL S1 S2, Carotid/Femoral/Distal pulses equal bilaterally GI: No tenderness/rebounding/guarding, No organomegaly, No hernia, Normal BS's, Nondistended, No mass/bruits, No McBurney tenderness : No CVA tenderness Extremities: No tenderness or effusion, Full ROM, normal strength in all extremities, No edema, Normal digits & nails Neuro/Psych: Alert/oriented, DTR's symmetric, Normal sensory exam, Normal motor strength, Judgement/insight normal, Mood normal, Normal gait, No focal deficits Misc: Normal back, No paraspinal tenderness ED Labs/Radiology/EKG Results - Lab Results Comments:: Reviewed - Radiology Results Comments:: CXR: + LL Hazy Infiltrates - EKG Interpretations EKG Time:: 08:28 Rate & Rhythm: 68; NSR Comments:: non-specific st-t changes ED Septic Shock - . Is Septic Shock (SBP<90, OR Lactate>4 mmol\L) present?: No ED Reassessment (Disposition) - Reassessment Reassessment Condition:: Improved - Diagnosis Diagnosis:: Altered Mental Status; Altered Level Of Consciouness; Cough; Pneumonia; Sepsis; HTN; DM; Hyponatremia; Hypokalemia; Dehydration; Hypoalbuminemia - Aftercare/Follow up Instructions Aftercare/Follow-Up Instructions:: Counseled pt regarding lab results/diagnosis & need follow up, Counseled pt & family regarding lab results/diagnosis & need follow up - Patient Disposition Discharge/Transfer:: Acute Care w/in this hosp Accepting Physician:: Dr. Perez Time Called:: 914 Time Responded:: 09:15 Admitted to:: Telemetry Spoke to:: Dr. Perez Admitting Medical Physician:: Dr. Perez Condition at Disposition:: Stable, Improved
[2019-05-08 08:45] LABS: HEMATOCRIT 38.8 % (41.0-60); HEMOGLOBIN 13.3 gm/dL (12-16); MEAN CELL VOLUME 88.3 fl (80-99); MEAN CORPUSCULAR HEMOGLOBIN 30.3 pg (26.0-30.0); MEAN CORPUSCULAR HGB CONC 34.3 pg (28.0-36.0); PLATELET COUNT 300 Th/cmm (150-400); RED BLOOD COUNT 4.39 Mil/cmm (4.30-5.70); WHITE BLOOD COUNT 6.5 Th/cmm (4.8-10.8)
[2019-05-08 08:50] LABS: INR 0.95 (0.5-1.4)
--- NOTE | 2019-05-08 08:50 | Diagnostic Imaging Report ---
CHEST X-RAY: AP view INDICATION: pain COMPARISON: 03/22/2019 FINDINGS: Increased interstitial lung markings are seen greatest within the lung bases. No focal consolidation or effusion. Heart size is normal. Osseous structures are intact. IMPRESSION: Increased interstitial lung markings greatest along the lung bases. Findings are probably chronic, however, faint infiltrate of the lower lung zones cannot be completely excluded. Please correlate clinically.
[2019-05-08] MEDS ORDERED: Levofloxacin 500mg/100mL 500 MG/100 ML BAG IV ONE ×2 (08:59→09:07)
[2019-05-08 09:05] LABS: ALB/GLOB RATIO 1.4 (1.0-1.8); ALBUMIN 4.1 gm/dL (4.2-5.5); ALKALINE PHOSPHATASE 68 U/L (34-104); ANION GAP 11.1 (7.0-16.0); BILIRUBIN,TOTAL 0.5 mg/dL (0.3-1.0); BUN - UREA NITROGEN 11 mg/dL (7-25); CALCIUM SERUM 9.4 mg/dL (8.6-10.3); CARBON DIOXIDE 27.3 mEq/L (21.0-31.0); CHLORIDE 98 mEq/L (98-107); CREATININE - SERUM 0.8 mg/dL (0.7-1.3); CREATININE KINASE 214 U/L (30-223); GFR AFRICAN-AMERICAN > 60.0 ml/min (>90); GFR NON AFRICAN-AMERICAN > 60.0 ml/min; GLUCOSE 99 mg/dL (70-105); POTASSIUM SERUM 3.4 mEq/L (3.5-5.1); SGOT 19 U/L (13-39); SGPT/ALT 16 U/L (7-52); SODIUM SERUM 133 mEq/L (136-145); TOTAL PROTEIN,SERUM 7.1 gm/dL (6.0-8.3)
[2019-05-08] MEDS ORDERED: Potassium Chloride 20 mEq ER Tab PO ONE ×2 (09:15→09:26)
[2019-05-08 09:22] LABS: BAND NEUTROPHILE 0 % (0-10); BASOPHIL 0 % (0-3); EOSINOPHIL 4 % (0-5); LYMPHOCYTE 16 % (20-50); MONOCYTE 9 % (2-10); NEUTROPHILS 71 % (40-80)
[2019-05-08 09:23] LABS: PLATELET ESTIMATE ADEQUATE (NORMAL)
[2019-05-08 10:02] LABS: URINE SOURCE MIDSTREAM
[2019-05-08 10:09] LABS: URINE BILIRUBIN NEGATIVE (NEGATIVE); URINE BLOOD NEGATIVE (NEGATIVE); URINE GLUCOSE (UA) NEGATIVE (NEGATIVE); URINE KETONE NEGATIVE (NEGATIVE); URINE LEUKOCYTE ESTERASE NEGATIVE (NEGATIVE); URINE NITRATE NEGATIVE (NEGATIVE); URINE PROTEIN NEGATIVE (NEGATIVE); URINE UROBILINOGEN 0.2 E.U./dL (0.2 - 1.0)
[2019-05-08 10:11] LABS: URINE CLARITY CLEAR (CLEAR); URINE COLOR YELLOW; URINE MICROSCOPIC INDICATED? YES
[2019-05-08 10:18] LABS: URINE BACTERIA NONE SEEN /hpf (NONE SEEN); URINE EPITHELIAL CELLS NONE SEEN /lpf (FEW); URINE RBC NONE SEEN /hpf (0-5); URINE WBC NONE SEEN /hpf (0-5)
[2019-05-08 11:36] VITALS: BP 136/92
[2019-05-08] MEDS: D5-0.45NS 1,000 ML IV SCH (22:38)
[2019-05-08] MEDS: Ferrous Sulfate 325 MG TAB PO SCH (22:47)
--- NOTE | 2019-05-09 02:34 | Consultation ---
DATE OF CONSULTATION: 05/08/2019 INFECTIOUS DISEASE CONSULTATION REFERRING PHYSICIAN: Dr. Perez. REASON FOR CONSULTATION: Pneumonia. HISTORY OF PRESENT ILLNESS: The patient is a 64-year-old male with a past medical history of hypertension, diabetes mellitus type 2, brought in from nursing facility for change in mental status or hematuria. Monitor mental status, loss of consciousness, cough, congestion, and generalized weakness. On initial evaluation, the patient's temperature was 98.1 degrees Fahrenheit and WBC count was 6500. Creatinine 0.8. Chest x-ray showed increased interstitial marking, greatest along the lung bases finding more chronic, faint infiltrate of the lower lobe. Lower lung zones cannot be excluded. The patient was started on levofloxacin with a diagnosis of pneumonia and ID consult was called for further antibiotic management. PAST MEDICAL HISTORY: Includes hypertension, diabetes mellitus type 2. REVIEW OF SYSTEMS: GENERAL: The patient denies any fever, chills, nausea, or generalized weakness. HEENT: No diplopia, no photophobia, no sore throat. RESPIRATORY: No cough, no shortness of breath. CARDIOVASCULAR: No chest pain or no palpitation. GASTROINTESTINAL: No nausea, no vomiting, no diarrhea. No constipation. GENITOURINARY: No dysuria. NEUROLOGIC: No headache, no dizziness, no focal weakness. SOCIAL HISTORY: The patient lives in a nursing facility. No history of smoking, alcohol or drug use. FAMILY HISTORY: Not available. MEDICATIONS: As per medication reconciliation sheet. Antibiotic alvarado, the patient is on Levaquin. ALLERGIES: NKDA. PHYSICAL EXAMINATION: VITAL SIGNS: Current vital signs shows temperature is 97.3, pulse 54, respirations 18, and blood pressure 126/74. GENERAL: The patient is comfortable, lying in the bed, not in acute distress. HEENT: Head is normocephalic, atraumatic. Oral cavity moist, pink tongue. NECK: Supple, no JVD, no carotid bruit. Trachea in midline. CHEST: Bilateral vesicular sounds. No crackles or wheezing. HEART: S1, S2 within normal limits. Regular rhythm. No murmur or gallop. ABDOMEN: Soft, nontender, nondistended. Bowel sounds present. EXTREMITIES: No cyanosis, no clubbing, no edema. NEUROLOGICAL: Alert, awake, oriented x 3. No focal deficit, ambulating well. LABORATORY DATA: Current lab shows WBC count 6500, hemoglobin 13.3, hematocrit 38.8, platelets are 300,000, neutrophil is 71%. Sodium is 133, potassium 3.4, chloride 98, bicarbonate is 27.3, BUN is 11, creatinine 0.8, glucose 99. LFTs reviewed. Urinalysis negative nitrite, negative leukoesterase. Chest x-ray showed bilateral increased ____ worse on the left side. May have pneumonia versus atelectasis versus congestion. IMPRESSION: 1. Suspect pneumonia. 2. Diabetes mellitus of 2. 3. Hypertension. RECOMMENDATIONS: Continue Levaquin, which can be sent to p.o. for 7 days. Thank you, Dr. Perez for involving me in taking care of this patient. JOB# [id number]
[2019-05-09 05:04] LABS: % BASOPHILS 0.3 % (0.0-2.0); % EOSINOPHILS 5.1 % (0.0-5.0); % LYMPHOCYTES 23.5 % (20.0-50.0); % MONOCYTES 7.7 % (2.0-10.0); % NEUTROPHILS 63.4 % (40.0-80.0); EOSINOPHILE ABSOLUTE 0.4 Th/cmm (0.1-0.4); HEMATOCRIT 38.2 % (41.0-60); LYMPHOCYTE ABSOLUTE 1.8 Th/cmm (1.5-3.0); MEAN CELL VOLUME 90.2 fl (80-99); MEAN CORPUSCULAR HEMOGLOBIN 30.6 pg (26.0-30.0); MEAN CORPUSCULAR HGB CONC 33.9 pg (28.0-36.0); MONOCYTE ABSOLUTE 0.6 Th/cmm (0.3-1.0); PLATELET COUNT 279 Th/cmm (150-400); RED BLOOD COUNT 4.24 Mil/cmm (4.30-5.70); RED CELL DISTRIBUTION WIDTH 15.9 % (11.5-20.0); WHITE BLOOD COUNT 7.8 Th/cmm (4.8-10.8)
[2019-05-09 06:10] LABS: ALB/GLOB RATIO 1.3 (1.0-1.8); ALKALINE PHOSPHATASE 65 U/L (34-104); ANION GAP 9.3 (7.0-16.0); BILIRUBIN,TOTAL 0.3 mg/dL (0.3-1.0); BUN - UREA NITROGEN 16 mg/dL (7-25); CARBON DIOXIDE 29.4 mEq/L (21.0-31.0); CHLORIDE 96 mEq/L (98-107); CHOLESTEROL 184 mg/dL (<200); CREATININE - SERUM 0.8 mg/dL (0.7-1.3); GFR AFRICAN-AMERICAN > 60.0 ml/min (>90); GFR NON AFRICAN-AMERICAN > 60.0 ml/min; GLUCOSE 78 mg/dL (70-105); HDL -HIGH DENSITY LIPOPROTEIN 42 mg/dL (23-92); POTASSIUM SERUM 3.7 mEq/L (3.5-5.1); SGOT 18 U/L (13-39); SGPT/ALT 15 U/L (7-52); SODIUM SERUM 131 mEq/L (136-145); TRIGLYCERIDES 171 mg/dL (<150)
[2019-05-09] MEDS: Multivitamin Tab PO SCH (08:35)
[2019-05-09] MEDS: Ferrous Sulfate 325 MG TAB PO SCH ×2 (08:35→16:24)
[2019-05-09] MEDS: Levofloxacin 500mg/100mL 500 MG/100 ML BAG IV SCH (08:44)
--- NOTE | 2019-05-09 14:23 | History and Physical ---
History of Present Illness - HPI Chief Complaint: Patient was brought into ER due to complaints of x 1 day ALOC, Altered mental status and Cough, Congestion and Weakness. HPI: 64 y/o male patient was admitted to [facility] due to x 1 day Altered level of consciousness, Altered mental status, Cough, Congestion and Weakness. Patient has history of Diabetes and Hypertension. Patient had an ER assessment and a complete workup was done. Patient had a chest x-ray performed which showed Increased interstitial lung markings greatest along the the lung bases. Findings are probably chronic, however faint infiltrates of the lower lung zones cannot be completely excluded. Patient was diagnosed with Pneumonia, Diabetes Mellitus type 2 and Hypertension. Patient will have an ID consult and I will follow, treat and monitor patient. Patient will continue current treatment plan as ordered. Vital Signs: Last Vital Signs Temp 98.4 F 05/09/19 12:58 Pulse 79 05/09/19 12:58 Resp 19 05/09/19 12:58 BP 105/58 05/09/19 12:58 Pulse Ox 98 05/09/19 12:58 Past Medical History Cardiovascular: Report: HTN Pulmonary: Report: Pneumonia [employer]: Report: Other (ALOC, AMS.) GI: Report: No Pertinent Hx Psych: Report: Other (AMS.) Musculoskeletal: Report: No Pertinent Hx Infectious Disease: Report: No Pertinent Hx Renal/: Report: No Pertinent Hx Endocrine: Report: Diabetes Dermatology: Report: No Pertinent Hx - Past Surgical History Past Surgical History: No pertinent Hx Family Medical History - Family Member Mother History Unknown: Yes Ethnicity: Unknown Living Status: Unknown Social History Smoke: No Alcohol: None Drugs: None Lives: Long-Term Domestic Violence: Negative Health Maintenance Health Maintenance: Other (see chart.) - Medications Home Medications: Home Medication Medication Instructions Recorded Type Acetaminophen 2 tab PO Q4HR PRN 03/22/19 History Docusate Sodium [Colace] 1 cap PO BID 03/22/19 History Ferrous Sulfate 1 tab PO BID 03/22/19 History Donepezil Hcl [Aricept] 5 mg PO HS 05/08/19 History Lorazepam [Ativan] 0.5 mg PO Q6H PRN 05/08/19 History Memantine [Namenda] 5 mg PO BID 05/08/19 History Multivitamin [Multivitamins] 1 cap PO DAILY 05/08/19 History Other Medications: Please see medication reconciliation sheet. - Allergies Allergies/Adverse Reactions: Allergies Allergy/AdvReac Type Severity Reaction Status Date / Time No Known Allergies Allergy Verified 03/22/19 15:11 Review of Systems - Review of Systems Review of Systems: 64 y/o male patient with altered mental status, complains of Cough with congestion. Constitutional: Report: Fever, Weakness Eyes: Report: No Significant ENT: Report: No Significant Respiratory: Report: Cough, Wheezing Cardiovascular: Report: No Significant Gastrointestinal: Report: No Significant Genitourinary: Report: No Significant Musculoskeletal: Report: No Significant Skin: Report: No Significant Neurological: Report: Other (AMS, ALOC.) Physical Exam - Physical Exam HEENT: Report: Ears Nose Throat within normal limits Neck: Report: Within normal limits Cardiovascular Systems: Report: +s1/s2 noted Respiratory: Report: Wheezing, Rhonchi Abdomen: Report: Non-tender to palpation Back: Report: Inspection of back is within normal limits. Extremities: Report: Non-tender to palpation. Skin: Report: Color of skin is within normal limits Neuro/Psych: Report: Weakness or sensory loss noted. - Lab Results All Lab Results last 24 hours: Laboratory Results - last 24 hr 05/09/19 05/09/19 05/09/19 04:40 04:40 04:40 WBC 7.8 RBC 4.24 L Hgb 13.0 Hct 38.2 L MCV 90.2 MCH 30.6 H MCHC Differential 33.9 RDW 15.9 Plt Count 279 MPV 6.8 Neutrophils % 63.4 Lymphocytes % 23.5 Monocytes % 7.7 Eosinophils % 5.1 H Basophils % 0.3 Sodium 131 L Potassium 3.7 Chloride 96 L Carbon Dioxide 29.4 Anion Gap 9.3 BUN 16 Creatinine 0.8 Est GFR ( Amer) > 60.0 Est GFR (Non-Af Amer) > 60.0 BUN/Creatinine Ratio 20.0 Glucose 78 Calcium 10.0 Total Bilirubin 0.3 AST 18 ALT 15 Alkaline Phosphatase 65 Total Protein 7.0 Albumin 4.0 L Globulin 3.0 Albumin/Globulin Ratio 1.3 Triglycerides 171 H Cholesterol 184 LDL Cholesterol Direct 127 HDL Cholesterol 42 TSH 1.35 Microbiology 05/08/19 08:35 - Preliminary Blood NO GROWTH AFTER 24 HOURS 05/08/19 08:20 - Preliminary Blood NO GROWTH AFTER 24 HOURS - Assessment Assessment: Pneumonia. Diabetes Mellitus type 2. Hypertension. Current Active Problems Problem Status Onset ALTERED MENTAL STATUS Acute - Plan Plan: Continuation of care. Monitor Labs and Chest x-ray. Continue present meds as directed. Monitor vitals, continue B/P meds. Accu-check daily, Continue DM meds as directed. Monitor Diet/Nutritional support. Respiratory treatments and Pulmonary support prn. Supplemental Oxygen prn. Aspiration precaution. Deep Suctioning prn. Monitor mental status progression. Monitor behavioral health status. Pain Management. Physical therapy. Occupational therapy. Safety precaution. Supportive care. Fall precaution, frequent nursing rounds, and as needed restraints to prevent fall. Continue collaborating with consulting specialists, case management and nursing team. Will Monitor patient and continue current treatment plan as ordered.
[2019-05-09] MEDS: D5-0.45NS 1,000 ML IV SCH (20:49)
[2019-05-10] MEDS: Levofloxacin 500mg/100mL 500 MG/100 ML BAG IV SCH (09:20)
[2019-05-10] MEDS: Multivitamin Tab PO SCH (09:21)
[2019-05-10] MEDS: Ferrous Sulfate 325 MG TAB PO SCH ×2 (09:21→16:11)
[2019-05-10] MEDS: D5-0.45NS 1,000 ML IV SCH (12:36)
--- NOTE | 2019-05-10 17:08 | Consultation ---
DATE OF CONSULTATION: 05/10/2019 PSYCHIATRIC CONSULT AGE: 64 years. SEX: Male. PHYSICIAN: Dr. Perez. GUM PULLER: Dr. Mendoza. TYPE OF THE REPORT: Psychiatric consult. REASON FOR THE CONSULT: Confusion, agitation, and bizarre behavior. The patient is a 64-year-old male who was admitted to the hospital because of 1-day complaint of altered level of consciousness and change in mental status exam as well as cough and congestion and generalized weakness. HISTORY OF PRESENT ILLNESS: The patient is a 64-year-old male who was admitted because of coughing and altered level of consciousness. Chart reviewed and the patient interviewed and discussed the patient's condition with the staff. The patient has been acting bizarre and has been walking around the unit and telling bizarre things like "I want to kill my mother" according to the staff. The patient also has been getting into the bathroom and staying there in the dark. The patient is answering to my questions by saying "I don't remember." He has been suspicious and seems to be paranoid. He is living in a group home and when I asked him about where he lives, his answer was "here." He is forgetful and confused. Also seems to be preoccupied PAST PSYCHIATRIC HISTORY: The patient has history of dementia. PAST MEDICAL HISTORY: The patient was admitted because of altered level of consciousness, and generalized weakness and cough. SOCIAL HISTORY: The patient lives in a group home. No known alcohol or drug use. The patient said that he never and has no children. He said that he smokes about 1 pack of cigarettes per day. ALLERGIES: No known allergies. MENTAL STATUS EXAM: The patient appears older than his stated age. Anxious. Cooperative. No behavioral issues during my interview and tried to answer questions, but forgetful ____ and all other time say "I can't remember." He denied any auditory or visual hallucinations, but seems to be preoccupied. He denied any suicidal or homicidal ideations. The patient is alert and oriented to situation, but not to the place or person or date. Impaired immediate and recent memory, but intact remote memory, and he did remember his date. Poor insight and poor judgment. ASSESSMENT: PRIMARY DIAGNOSIS: Unspecified psychosis. SECONDARY DIAGNOSIS: Dementia, moderate to severe, with psychotic features. TREATMENT PLAN: We will monitor the patient's behavior and condition closely. We will continue Aricept and Namenda. We will continue evaluation for any possible more recommendations. Thanks to Dr. Perez, and we will followup with you. JOB# [id number]
--- NOTE | 2019-05-10 20:03 | Internal Medicine Prog Note ---
Internal Medicine Subjective - Subjective Service Date: 05/10/19 Patient seen and examined:: with staff Patient is:: awake Per staff patient has:: tolerating meds Internal Medicine Objective - Results Result Diagrams: 05/09/19 04:40 05/09/19 04:40 Recent Labs: Laboratory Last Values WBC 7.8 Th/cmm (4.8-10.8) 05/09/19 04:40 RBC 4.24 Mil/cmm (4.30-5.70) L 05/09/19 04:40 Hgb 13.0 gm/dL (12-16) 05/09/19 04:40 Hct 38.2 % (41.0-60) L 05/09/19 04:40 MCV 90.2 fl (80-99) 05/09/19 04:40 MCH 30.6 pg (26.0-30.0) H 05/09/19 04:40 MCHC Differential 33.9 pg (28.0-36.0) 05/09/19 04:40 RDW 15.9 % (11.5-20.0) 05/09/19 04:40 Plt Count 279 Th/cmm (150-400) 05/09/19 04:40 MPV 6.8 fl 05/09/19 04:40 Add Manual Diff YES 05/08/19 08:20 Neutrophils % 63.4 % (40.0-80.0) 05/09/19 04:40 Band Neutrophils % 0 % (0-10) 05/08/19 08:20 Lymphocytes % 23.5 % (20.0-50.0) 05/09/19 04:40 Monocytes % 7.7 % (2.0-10.0) 05/09/19 04:40 Eosinophils % 5.1 % (0.0-5.0) H 05/09/19 04:40 Basophils % 0.3 % (0.0-2.0) 05/09/19 04:40 Neutrophils (Manual) 71 % (40-80) 05/08/19 08:20 Lymphocytes 16 % (20-50) L 05/08/19 08:20 Monocytes 9 % (2-10) 05/08/19 08:20 Eosinophils 4 % (0-5) 05/08/19 08:20 Basophils 0 % (0-3) 05/08/19 08:20 Platelet Estimate ADEQUATE (NORMAL) 05/08/19 08:20 PT 9.9 SECONDS (9.5-11.5) 05/08/19 08:20 INR 0.95 (0.5-1.4) 05/08/19 08:20 PTT (Actin FS) 23.0 SECONDS (26.0-38.0) L 05/08/19 08:20 Sodium 131 mEq/L (136-145) L 05/09/19 04:40 Potassium 3.7 mEq/L (3.5-5.1) 05/09/19 04:40 Chloride 96 mEq/L (98-107) L 05/09/19 04:40 Carbon Dioxide 29.4 mEq/L (21.0-31.0) 05/09/19 04:40 Anion Gap 9.3 (7.0-16.0) 05/09/19 04:40 BUN 16 mg/dL (7-25) 05/09/19 04:40 Creatinine 0.8 mg/dL (0.7-1.3) 05/09/19 04:40 Est GFR ( Amer) > 60.0 ml/min (>90) 05/09/19 04:40 Est GFR (Non-Af Amer) > 60.0 ml/min 05/09/19 04:40 BUN/Creatinine Ratio 20.0 05/09/19 04:40 Glucose 78 mg/dL (70-105) 05/09/19 04:40 POC Glucose 114 MG/DL (70 - 105) H 05/08/19 08:17 Whole Bld Lactic Acid 0.85 mmol/L (0.60-1.99) 05/08/19 08:20 Calcium 10.0 mg/dL (8.6-10.3) 05/09/19 04:40 Total Bilirubin 0.3 mg/dL (0.3-1.0) 05/09/19 04:40 AST 18 U/L (13-39) 05/09/19 04:40 ALT 15 U/L (7-52) 05/09/19 04:40 Alkaline Phosphatase 65 U/L (34-104) 05/09/19 04:40 Creatine Kinase 214 U/L (30-223) 05/08/19 08:20 Troponin I 0.01 ng/mL (0.01-0.05) 05/08/19 08:20 Total Protein 7.0 gm/dL (6.0-8.3) 05/09/19 04:40 Albumin 4.0 gm/dL (4.2-5.5) L 05/09/19 04:40 Globulin 3.0 gm/dL 05/09/19 04:40 Albumin/Globulin Ratio 1.3 (1.0-1.8) 05/09/19 04:40 Triglycerides 171 mg/dL (<150) H 05/09/19 04:40 Cholesterol 184 mg/dL (<200) 05/09/19 04:40 LDL Cholesterol Direct 127 mg/dL (75-193) 05/09/19 04:40 HDL Cholesterol 42 mg/dL (23-92) 05/09/19 04:40 TSH 1.35 uIU/ml (0.34-5.60) 05/09/19 04:40 Urine Source MIDSTREAM 05/08/19 09:30 Urine Color YELLOW 05/08/19 09:30 Urine Clarity CLEAR (CLEAR) 05/08/19 09:30 Urine pH 7.0 (4.6 - 8.0) 05/08/19 09:30 Ur Specific [place] 1.010 (1.005-1.030) 05/08/19 09:30 Urine Protein NEGATIVE mg/dL (NEGATIVE) 05/08/19 09:30 Urine Glucose (UA) NEGATIVE mg/dL (NEGATIVE) 05/08/19 09:30 Urine Ketones NEGATIVE mg/dL (NEGATIVE) 05/08/19 09:30 Urine Blood NEGATIVE (NEGATIVE) 05/08/19 09:30 Urine Nitrate NEGATIVE (NEGATIVE) 05/08/19 09:30 Urine Bilirubin NEGATIVE (NEGATIVE) 05/08/19 09:30 Urine Urobilinogen 0.2 E.U./dL (0.2 - 1.0) 05/08/19 09:30 Ur Leukocyte Esterase NEGATIVE (NEGATIVE) 05/08/19 09:30 Urine RBC NONE SEEN /hpf (0-5) 05/08/19 09:30 Urine WBC NONE SEEN /hpf (0-5) 05/08/19 09:30 Ur Epithelial Cells NONE SEEN /lpf (FEW) 05/08/19 09:30 Urine Bacteria NONE SEEN /hpf (NONE SEEN) 05/08/19 09:30 - Physical Exam Vitals and I&O: Vital Signs Temp 98.9 F 05/10/19 15:56 Pulse 69 05/10/19 15:56 Resp 18 05/10/19 15:56 BP 111/68 05/10/19 15:56 Pulse Ox 98 05/10/19 15:56 Intake & Output 05/10/19 05/10/19 05/11/19 06:59 18:59 06:59 Intake Total 400 1289.167 Balance 400 1289.167 Weight (lbs) 145 lb 150 lb Intake: Intake, IV Amount 789.167 D5-0.45NS 1,000 ml @ 50 789.167 mls/hr IV .Q20H [facility] Rx#: [id number] Oral 400 500 Other: # Voids 3 2 # Bowel Movements 1 1 Weight Source Estimated Bedscale Active Medications: Current Medications Acetaminophen (Tylenol) 650 mg PO Q4HR PRN PRN Reason: MILD PAIN Stop: 07/07/19 20:46 Last Admin: 05/09/19 20:49 Dose: 650 mg Docusate Sodium (Colace) 100 mg PO BID [facility] Stop: 07/07/19 21:29 Last Admin: 05/10/19 16:11 Dose: 100 mg Donepezil HCl (Aricept) 5 mg PO HS [facility] Stop: 07/07/19 20:59 Last Admin: 05/09/19 20:49 Dose: 5 mg Ferrous Sulfate (Iron) 325 mg PO BID [facility] Stop: 07/07/19 21:29 Last Admin: 05/10/19 16:11 Dose: 325 mg Levofloxacin (Levaquin Pb) 500 mg in 100 mls @ 100 mls/hr IV Q24HR [facility] Stop: 07/08/19 09:44 Last Admin: 05/10/19 09:20 Dose: 100 mls/hr Dextrose/Sodium Chloride (D5-0.45ns) 1,000 mls @ 50 mls/hr IV .Q20H [facility] Stop: 07/07/19 20:59 Last Admin: 05/10/19 12:36 Dose: 50 mls/hr Memantine (Namenda) 5 mg PO BID [facility] Stop: 07/07/19 21:29 Last Admin: 05/10/19 16:11 Dose: 5 mg Multivitamins/Vitamin C (Theragran) 1 tab PO DAILY [facility] Stop: 07/08/19 08:59 Last Admin: 05/10/19 09:21 Dose: 1 tab Temazepam (Restoril) 15 mg PO HS PRN; Protocol PRN Reason: Insomnia Stop: 07/08/19 04:35 Last Admin: 05/09/19 20:50 Dose: 15 mg General: weak HEENT: NC/AT, PERRLA Neck: Supple Lungs: CTAB Cardiovascular: RRR, Normal S1, Normal S2 Abdomen: soft, non-tender, non-distended Neurological: no change Internal Medicine Assmt/Plan - Assessment Assessment: Pneumonia. Diabetes Mellitus type 2. Hypertension. - Plan Plan: continue ivabx am labs continue current plan of care
[2019-05-11 05:45] LABS: % BASOPHILS 0.6 % (0.0-2.0); % EOSINOPHILS 4.6 % (0.0-5.0); % LYMPHOCYTES 27.3 % (20.0-50.0); % MONOCYTES 9.2 % (2.0-10.0); % NEUTROPHILS 58.3 % (40.0-80.0); EOSINOPHILE ABSOLUTE 0.4 Th/cmm (0.1-0.4); HEMATOCRIT 40.7 % (41.0-60); HEMOGLOBIN 13.3 gm/dL (12-16); LYMPHOCYTE ABSOLUTE 2.1 Th/cmm (1.5-3.0); MEAN CELL VOLUME 91.3 fl (80-99); MEAN CORPUSCULAR HEMOGLOBIN 29.8 pg (26.0-30.0); MEAN CORPUSCULAR HGB CONC 32.6 pg (28.0-36.0); MONOCYTE ABSOLUTE 0.7 Th/cmm (0.3-1.0); NEUTROPHILE ABSOLUTE 4.5 Th/cmm (1.8-8.0); PLATELET COUNT 270 Th/cmm (150-400); RED BLOOD COUNT 4.45 Mil/cmm (4.30-5.70); RED CELL DISTRIBUTION WIDTH 15.3 % (11.5-20.0); WHITE BLOOD COUNT 7.7 Th/cmm (4.8-10.8)
[2019-05-11 06:13] LABS: ANION GAP 10.8 (7.0-16.0); BUN - UREA NITROGEN 19 mg/dL (7-25); CALCIUM SERUM 9.7 mg/dL (8.6-10.3); CARBON DIOXIDE 27.1 mEq/L (21.0-31.0); CHLORIDE 99 mEq/L (98-107); CREATININE - SERUM 0.8 mg/dL (0.7-1.3); GFR AFRICAN-AMERICAN > 60.0 ml/min (>90); GFR NON AFRICAN-AMERICAN > 60.0 ml/min; GLUCOSE 99 mg/dL (70-105); POTASSIUM SERUM 3.9 mEq/L (3.5-5.1); SODIUM SERUM 133 mEq/L (136-145)
[2019-05-11] MEDS: Multivitamin Tab PO SCH (09:59)
[2019-05-11] MEDS: Ferrous Sulfate 325 MG TAB PO SCH ×2 (09:59→17:23)
[2019-05-11] MEDS: D5-0.45NS 1,000 ML IV SCH (10:17)
[2019-05-11] MEDS: Levofloxacin 500mg/100mL 500 MG/100 ML BAG IV SCH (10:22)
--- NOTE | 2019-05-11 14:21 | Infectious Disease Prog Note ---
Infectious Disease Subjective - Review of Systems Service Date: 05/11/19 Subjective: There is no cough, no shortness of breath. no fever. Infectious Disease Objective - Results Result Diagrams: 05/11/19 05:35 05/11/19 05:35 Recent Labs: Laboratory Last Values WBC 7.7 Th/cmm (4.8-10.8) 05/11/19 05:35 RBC 4.45 Mil/cmm (4.30-5.70) 05/11/19 05:35 Hgb 13.3 gm/dL (12-16) 05/11/19 05:35 Hct 40.7 % (41.0-60) L 05/11/19 05:35 MCV 91.3 fl (80-99) 05/11/19 05:35 MCH 29.8 pg (26.0-30.0) 05/11/19 05:35 MCHC Differential 32.6 pg (28.0-36.0) 05/11/19 05:35 RDW 15.3 % (11.5-20.0) 05/11/19 05:35 Plt Count 270 Th/cmm (150-400) 05/11/19 05:35 MPV 6.5 fl 05/11/19 05:35 Add Manual Diff YES 05/08/19 08:20 Neutrophils % 58.3 % (40.0-80.0) 05/11/19 05:35 Band Neutrophils % 0 % (0-10) 05/08/19 08:20 Lymphocytes % 27.3 % (20.0-50.0) 05/11/19 05:35 Monocytes % 9.2 % (2.0-10.0) 05/11/19 05:35 Eosinophils % 4.6 % (0.0-5.0) 05/11/19 05:35 Basophils % 0.6 % (0.0-2.0) 05/11/19 05:35 Neutrophils (Manual) 71 % (40-80) 05/08/19 08:20 Lymphocytes 16 % (20-50) L 05/08/19 08:20 Monocytes 9 % (2-10) 05/08/19 08:20 Eosinophils 4 % (0-5) 05/08/19 08:20 Basophils 0 % (0-3) 05/08/19 08:20 Platelet Estimate ADEQUATE (NORMAL) 05/08/19 08:20 PT 9.9 SECONDS (9.5-11.5) 05/08/19 08:20 INR 0.95 (0.5-1.4) 05/08/19 08:20 PTT (Actin FS) 23.0 SECONDS (26.0-38.0) L 05/08/19 08:20 Sodium 133 mEq/L (136-145) L 05/11/19 05:35 Potassium 3.9 mEq/L (3.5-5.1) 05/11/19 05:35 Chloride 99 mEq/L (98-107) 05/11/19 05:35 Carbon Dioxide 27.1 mEq/L (21.0-31.0) 05/11/19 05:35 Anion Gap 10.8 (7.0-16.0) 05/11/19 05:35 BUN 19 mg/dL (7-25) 05/11/19 05:35 Creatinine 0.8 mg/dL (0.7-1.3) 05/11/19 05:35 Est GFR ( Amer) > 60.0 ml/min (>90) 05/11/19 05:35 Est GFR (Non-Af Amer) > 60.0 ml/min 05/11/19 05:35 BUN/Creatinine Ratio 23.8 05/11/19 05:35 Glucose 99 mg/dL (70-105) 05/11/19 05:35 POC Glucose 114 MG/DL (70 - 105) H 05/08/19 08:17 Whole Bld Lactic Acid 0.85 mmol/L (0.60-1.99) 05/08/19 08:20 Calcium 9.7 mg/dL (8.6-10.3) 05/11/19 05:35 Total Bilirubin 0.3 mg/dL (0.3-1.0) 05/09/19 04:40 AST 18 U/L (13-39) 05/09/19 04:40 ALT 15 U/L (7-52) 05/09/19 04:40 Alkaline Phosphatase 65 U/L (34-104) 05/09/19 04:40 Creatine Kinase 214 U/L (30-223) 05/08/19 08:20 Troponin I 0.01 ng/mL (0.01-0.05) 05/08/19 08:20 Total Protein 7.0 gm/dL (6.0-8.3) 05/09/19 04:40 Albumin 4.0 gm/dL (4.2-5.5) L 05/09/19 04:40 Globulin 3.0 gm/dL 05/09/19 04:40 Albumin/Globulin Ratio 1.3 (1.0-1.8) 05/09/19 04:40 Triglycerides 171 mg/dL (<150) H 05/09/19 04:40 Cholesterol 184 mg/dL (<200) 05/09/19 04:40 LDL Cholesterol Direct 127 mg/dL (75-193) 05/09/19 04:40 HDL Cholesterol 42 mg/dL (23-92) 05/09/19 04:40 TSH 1.35 uIU/ml (0.34-5.60) 05/09/19 04:40 Urine Source MIDSTREAM 05/08/19 09:30 Urine Color YELLOW 05/08/19 09:30 Urine Clarity CLEAR (CLEAR) 05/08/19 09:30 Urine pH 7.0 (4.6 - 8.0) 05/08/19 09:30 Ur Specific [place] 1.010 (1.005-1.030) 05/08/19 09:30 Urine Protein NEGATIVE mg/dL (NEGATIVE) 05/08/19 09:30 Urine Glucose (UA) NEGATIVE mg/dL (NEGATIVE) 05/08/19 09:30 Urine Ketones NEGATIVE mg/dL (NEGATIVE) 05/08/19 09:30 Urine Blood NEGATIVE (NEGATIVE) 05/08/19 09:30 Urine Nitrate NEGATIVE (NEGATIVE) 05/08/19 09:30 Urine Bilirubin NEGATIVE (NEGATIVE) 05/08/19 09:30 Urine Urobilinogen 0.2 E.U./dL (0.2 - 1.0) 05/08/19 09:30 Ur Leukocyte Esterase NEGATIVE (NEGATIVE) 05/08/19 09:30 Urine RBC NONE SEEN /hpf (0-5) 05/08/19 09:30 Urine WBC NONE SEEN /hpf (0-5) 05/08/19 09:30 Ur Epithelial Cells NONE SEEN /lpf (FEW) 05/08/19 09:30 Urine Bacteria NONE SEEN /hpf (NONE SEEN) 05/08/19 09:30 - Physical Exam Vitals and I&O: Vital Signs Temp 97.0 F 05/11/19 11:51 Pulse 70 05/11/19 11:51 Resp 19 05/11/19 11:51 BP 110/67 05/11/19 11:51 Pulse Ox 100 05/11/19 11:51 Intake & Output 05/10/19 05/11/19 05/11/19 18:59 06:59 18:59 Intake Total 1553.962 0808 Output Total 4 Balance 1389.167 -4 1000 Weight (lbs) 68.039 kg 68.039 kg Intake: Intake, IV Amount 586.791 4346 D5-0.45NS 1,000 ml @ 50 568.603 6753 mls/hr IV .Q20H [facility] Rx#: [id number] Levofloxacin 500mg/100mL 100 500 mg In 100 ml @ 100 mls/hr IV Q24HR [facility] Rx#: [id number] Oral 500 Output: Urine 4 Other: # Voids 2 # Bowel Movements 1 0 Weight Source Bedscale Bedscale Active Medications: Current Medications Acetaminophen (Tylenol) 650 mg PO Q4HR PRN PRN Reason: MILD PAIN Stop: 07/07/19 20:46 Last Admin: 05/09/19 20:49 Dose: 650 mg Docusate Sodium (Colace) 100 mg PO BID [facility] Stop: 07/07/19 21:29 Last Admin: 05/11/19 09:59 Dose: 100 mg Donepezil HCl (Aricept) 5 mg PO HS [facility] Stop: 07/07/19 20:59 Last Admin: 05/10/19 21:37 Dose: 5 mg Ferrous Sulfate (Iron) 325 mg PO BID [facility] Stop: 07/07/19 21:29 Last Admin: 05/11/19 09:59 Dose: 325 mg Levofloxacin (Levaquin Pb) 500 mg in 100 mls @ 100 mls/hr IV Q24HR [facility] Stop: 07/08/19 09:44 Last Admin: 05/11/19 10:22 Dose: 100 mls/hr Dextrose/Sodium Chloride (D5-0.45ns) 1,000 mls @ 50 mls/hr IV .Q20H [facility] Stop: 07/07/19 20:59 Last Admin: 05/11/19 10:17 Dose: 50 mls/hr Memantine (Namenda) 5 mg PO BID [facility] Stop: 07/07/19 21:29 Last Admin: 05/11/19 09:59 Dose: 5 mg Multivitamins/Vitamin C (Theragran) 1 tab PO DAILY [facility] Stop: 07/08/19 08:59 Last Admin: 05/11/19 09:59 Dose: 1 tab Quetiapine Fumarate (Seroquel) 12.5 mg PO BID [facility]; Protocol Stop: 07/10/19 16:59 Temazepam (Restoril) 15 mg PO HS PRN; Protocol PRN Reason: Insomnia Stop: 07/08/19 04:35 Last Admin: 05/09/19 20:50 Dose: 15 mg General: no acute distress, well developed, well nourished HEENT: atraumatic, normocephalic, PERRLA, EOMI, moist mucous membrane Neck: supple, no thyromegaly Cardiovascular: S1S2, regular Lungs: clear to auscultation bilaterally, clear to percussion Abdomen: soft, no tender, no distended Extremities: no cyanosis, no clubbing, no edema Neurological: awake, alert, oriented Skin: intact Infectious Disease Assmt/Plan - Problem List Patient Problems: All Active Problems ALTERED MENTAL STATUS (Acute) - Assessment Assessment: 1. Suspect pneumonia. 2. Diabetes mellitus of 2. 3. Hypertension. - Plan Plan: march dc patient on levaquin 500mg po daily for 5 days./ Follow up with me after 2 week on 05/24/2019.
--- NOTE | 2019-05-12 02:40 | Progress Notes ---
DATE: 05/11/2019 SUBJECTIVE: Chart was reviewed and the patient interviewed. Also discussed the patient's condition with the staff and reviewed records and labs. The patient has episodes of agitation and irritability and increased noncompliance with instructions. The patient also pulled his IVs out yesterday and he is still trying to pull his IVs and getting more agitated at times. Otherwise, the patient is forgetful and he is still having mood swings. ASSESSMENT: The patient still has episodes of agitation and irritability. TREATMENT PLAN: We will continue to monitor his behavior. Also, we will add Seroquel in a dose of 12.5 mg twice a day and we will continue to monitor his behavior closely. [facility]# [id number]
--- NOTE | 2019-05-20 00:30 | Discharge Summary ---
DATE OF DISCHARGE: 05/11/2019 HOSPITAL COURSE: The patient was admitted at [facility]. The patient was admitted because of altered mental status, found to have hepatic encephalopathy and also the patient had hypoxia, pneumonia, and diabetes type 2 as well as cellulitis. The patient was treated for all of that. The patient improved and the patient was in stable condition. The patient was sent back to [facility] where I will follow the patient. CONDITION AT THE TIME OF DISCHARGE: Stable. MEDICATIONS, DIET, ACTIVITY: See the order sheet. JOB# [id number]
== END 2019-05-11 18:45 | DRG 871 ==
LOC: ER 07:50 → MSI 09:28
PROVIDERS: ADMIT Internal Medicine; ATTEND Internal Medicine
DX: A41.9 Sepsis, unspecified organism (principal); J69.0 Pneumonitis due to inhalation of food and vomit; E87.1 Hypo-osmolality and hyponatremia; F03.91 Unspecified dementia, unspecified severity, with behavioral disturbance; L03.90 Cellulitis, unspecified; E11.628 Type 2 diabetes mellitus with other skin complications; K72.90 Hepatic failure, unspecified without coma; I10 Essential (primary) hypertension; E87.6 Hypokalemia; E86.0 Dehydration; E88.09 Other disorders of plasma-protein metabolism, not elsewhere classified; F29 Unspecified psychosis not due to a substance or known physiological condition; F17.210 Nicotine dependence, cigarettes, uncomplicated; R09.02 Hypoxemia
CPT/HCPCS: 36415-UA; 71045-TC; 80048-TC; 80053-TC; 80061-TC; 81001-TC; 82550-TC; 82948-90; 83605; 84443-TC; 84484-TC; 85007-TC; 85025-TC; 85610-TC; 85730-TC; 87086-90; 93005; J1956; Z7610